=== PATIENT | female | born 1945 | race Two or more races ===

== ENCOUNTER 2017-04-14 06:19 | Day surgery (SDC) | payer MEDICARE, OTHER, SELFPAY ==
--- NOTE | 2017-04-10 15:22 | Pre-Procedure Note/Attestation ---
Pre-Procedure Note/Attestation Complete Prior to Procedure Planned Procedure: right Procedure Narrative: 1. CATARACT EXTRACTION WITH PHACO AND PC IOL IMPLANTATION, RIGHT EYE. Indications for Procedure Pre-Operative Diagnosis: 1. CATARACT ,RIGHT EYE. Attestation I attest that I discussed the nature of the procedure; its benefits; risks and complications; and alternatives (and the risks and benefits of such alternatives ), prior to the procedure, with the patient (or the patient's legal outbound telemarketing representative). I attest that, if there was a reasonable possibility of needing a blood transfusion, the patient (or the patient's legal outbound telemarketing representative) was given the [facility] standardized written summary, pursuant to the [place] Blood Safety Act ([place] Health and Safety Code # 1645, as amended). I attest that I re-evaluated the patient just prior to the surgery and that there has been no change in the patient's H&P, except as documented below: FARRAH ARCE Apr 10, 2017 15:22
[~2017-04-14] VITALS: Ht 154.9 cm; Wt 58.1 kg
[2017-04-14] VITALS (10 sets, daily range): BP systolic 116–169; BP diastolic 63–79
[~2017-04-14 06:19] MED LIST: acetaZOLAMIDE 125mg tab ORAL ONE
[2017-04-14] MEDS ORDERED: Phenylephrine 10% Opth Soln 5ml ONE (07:25)
[2017-04-14] MEDS ORDERED: Gatifloxacin Opth Solution 0.5% ONE (07:25)
[2017-04-14] MEDS ORDERED: Tropicamide 1% Opth Soln ONE (07:25)
[2017-04-14] MEDS ORDERED: Diclofenac Sod 0.1% Op Soln ONE (07:25)
[2017-04-14] MEDS ORDERED: Akten 3.5% 1ml Btl ONE (07:25)
[2017-04-14] MEDS ORDERED: BSS 500ml btl ONE (07:26)
[2017-04-14] MEDS ORDERED: Lidocaine 1% MPF 10mg/ml 5ml ONE (07:26)
[2017-04-14] MEDS ORDERED: Carbachol 0.01% Op Soln 1.5ml vial ONE (07:26)
[2017-04-14] MEDS ORDERED: Tetracaine 0.5% Opth Soln ONE (07:26)
[2017-04-14] MEDS ORDERED: Dexamethasone 4mg/ml vial ONE (07:26)
[2017-04-14] MEDS ORDERED: Povidone-Iodine 5% opth solution ONE (07:27)
[2017-04-14] MEDS ORDERED: BSS 15ml BTL ONE (07:27)
[2017-04-14] MEDS ORDERED: Sodium Hyaluronate 10 mg/ml 0.85ml ONE (07:27)
[2017-04-14] MEDS: Gatifloxacin Opth Solution 0.5% RIGHT EYE SCH ×3 (07:32→07:45)
[2017-04-14] MEDS: Diclofenac Sod 0.1% Op Soln RIGHT EYE SCH ×3 (07:32→07:44)
[2017-04-14] MEDS: Tropicamide 1% Opth Soln RIGHT EYE SCH ×3 (07:32→07:44)
[2017-04-14] MEDS: Phenylephrine 10% Opth Soln 5ml RIGHT EYE SCH ×3 (07:32→07:44)
[2017-04-14] MEDS: Akten 3.5% 1ml Btl RIGHT EYE SCH ×3 (07:32→07:44)
[2017-04-14] MEDS ORDERED: Potassium Chloride 20 MEQ in LR 1000ml 1,000 ML IV SCH (08:00)
[2017-04-14] MEDS ORDERED: ECOTRIN81 MG PO (08:01)
[2017-04-14] MEDS ORDERED: LEVOTHYROXINE25 MCG ORAL (08:01)
[2017-04-14] MEDS ORDERED: MECLIZINE HCL25 M1 ORAL (08:01)
[2017-04-14] MEDS ORDERED: Propofol 10mg/ml 20ml IV ONE ×2 (08:30)
[2017-04-14] MEDS ORDERED: Sterile Water Irrig 1000ml IRRIG ONE (08:30)
[2017-04-14] MEDS ORDERED: Midazolam 2mg/2ml Inj ONE (08:30)
[2017-04-14] MEDS ORDERED: NS Irrig 1000ml ONE (08:30)
[2017-04-14] MEDS ORDERED: LR 1000ml ONE (08:30)
[2017-04-14] MEDS ORDERED: fentaNYL 100 mcg/2 mL IV ONE (08:30)
[2017-04-14] MEDS ORDERED: LR 1000ml 1,000 ML IVLG SCH (08:49)
--- NOTE | 2017-04-14 08:49 | Anethesia Preoperative Eval ---
Anesthesia Pre-op PMH/ROS General Date of Evaluation: Apr 14, 2017 Time of Evaluation: 08:25 Anesthesiologist: Alessio ASA Score: ASA 2 Mallampati Score Class I : Soft palate, uvula, fauces, pillars visible Class II: Soft palate, uvula, fauces visible Class III: Soft palate, base of uvula visible Class IV: Only hard plate visible Mallampati Classification: Class II Surgeon: Jose Diagnosis: R eye cataract Surgical Procedure: R eye cataract extraction Anesthesia History: none Social History: smoking - h/o Family History: no anesthesia problems Allergies: Coded Allergies: CODEINE (Verified Allergy, Severe, dizziness, 04/14/17) Medications: see eMAR Past Medical History Cardiovascular: Denies: CAD, HTN, [place], arrhythmia, other, valve dz Pulmonary: Denies: COPD, K[place], asthma, other Gastrointestinal/Genitourinary: Reports: GERD - mild, Denies: CRI, ESRD, other Neurologic/Psychiatric: Denies: CVA, TIA, dementia, depression/anxiety, other Endocrine: Reports: hypothyroidism, Denies: DM, other, steroids HEENT: Reports: cataract (L), cataract (R), Denies: [place] (L), [place] (R), glaucoma, other Hematology/Immune: Denies: DVT, anemia, bleeding disorder, other Musculoskeletal/Integumentary: Reports: OA, Denies: DDD, DJD, RA, edema, other PMH Narrative: as above PSxH Narrative: none Anesthesia Pre-op Phys. Exam Physician Exam Last Vital Signs Date Time Temp Pulse Resp B/P Pulse Ox O2 Delivery O2 Flow Rate FiO2 04/14/17 07:42 97.8 72 18 133/63 98 Room Air Constitutional: NAD Neurologic: CN 2-12 intact Cardiovascular: RRR, no M/R/G Respiratory: CTA Gastrointestinal: S/NT/ND Airway Exam Mallampati Score: Class II MO: limited Neck: stiff ROM: limited Teeth: missing Dentures: no lower, no upper Anesthesia Pre-op A/P Labs see chart Studies Pre-op Studies: EKG - NSR Risk Assessment & Plan Assessment: ASA 2 Plan: MAC Status Change Before Surgery: No Pre-Antibiotics Drug: none DINA ORNELAS M.D. Apr 14, 2017 08:49
[2017-04-14] MEDS ORDERED: fentaNYL 100 mcg/2 mL IV PRN (09:00)
[2017-04-14] MEDS ORDERED: DiphenhydrAMINE 50mg/ml Inj IVP PRN (09:00)
--- NOTE | 2017-04-14 09:20 | Brief Operative Note ---
Immediate Post Operative Note Operative Note Chief Complaint: Blurry vision, right eye. Difficulty driving and reading, right eye Pre-op Diagnosis: 1. CATARACT ,RIGHT EYE. Procedure: cataract extraction with phaco and PC IOL implantation, right eye Post-op Diagnosis: same as pre-op Surgeon: Farrah Garcia MD. Neonatal Social Worker: None Additional Surgeons: None Anesthesiologist: Dr. Mccallum Anesthesia: MAC Specimen: none Complications: none Condition: stable Estimated Blood Loss: none Drains: none Implant(s) used?: Yes - Multifocal PC IOL implanted in the right eye without complication FARRAH GARCIA Apr 14, 2017 09:20
--- NOTE | 2017-04-14 09:22 | Discharge Summary ---
Discharge Summary Discharge Summary Discharge Summary DATE OF ADMISSION:)04/14/2017 DATE OF DISCHARGE:04/14/2017 REASON FOR HOSPITALIZATION: Cataract, right eye SURGERY PERFORMED: Cataract extraction with phaco and PC IOL implantation,roght eye CONDITION IN THE HOSPITAL:The patient tolerated the surgery without complications. DISCHARGE CONDITION: The patient was stable at discharge. DISCHARGE MEDICATIONS: 1. Vigamox eye drops one drop q.i.d, 2. Prednisolone one drop q.i.d, 3. Acular one drop qid, right eye POSTOPERATIVE ORDERS: The patient has to rest at home. No bending, No lifting, No watching Television tonight. POSTOPERATIVE FOLLOW UP: The patient will be followed in my office tomorrow morning at 7 o'clock. FARRAH ARCE Apr 14, 2017 09:22
--- NOTE | 2017-04-14 09:59 | Immediate Post-Op Evaluation ---
Immediate Post-Op Evalulation Immediate Post-Op Evalulation Procedure: R eye cataract extraction with IOL Date of Evaluation: Apr 14, 2017 Time of Evaluation: 09:18 IV Fluids: 200 Blood Products: none Estimated Blood Loss: none Urinary Output: none Blood Pressure Systolic: 134 Blood Pressure Diastolic: 58 Pulse Rate: 72 Respiratory Rate: 20 O2 Sat by Pulse Oximetry: 99 Temperature (Fahrenheit): 97.7 Pain Score (1-10): 2 Nausea: No Vomiting: No Complications none Patient Status: awake, patent, none Hydration Status: adequate DINA ORNELAS M.D. Apr 14, 2017 09:59
--- NOTE | 2017-04-14 12:44 | 48 Hour Post Anesthesia Eval ---
Post Anesthesia Evaluation Procedure: R eye cataract extraction with IOL Date of Evaluation: Apr 14, 2017 Time of Evaluation: 12:43 Blood Pressure Systolic: 116 0: 72 Pulse Rate: 68 Respiratory Rate: 20 Temperature (Fahrenheit): 97.5 O2 Sat by Pulse Oximetry: 98 Airway: patent Nausea: No Vomiting: No Pain Intensity: 2 Hydration Status: adequate Cardiopulmonary Status: stable Mental Status/LOC: patient returned to baseline Follow-up Care/Observations: n/a Post-Anesthesia Complications: none Follow-up care needed: ready to discharge DINA ORNELAS M.D. Apr 14, 2017 12:44
--- NOTE | 2017-04-14 23:45 | Operative Note - Dictated ---
DATE OF OPERATION: 04/14/2017 FACILITY: [facility]. SURGEON: Jace Garcia M.D. DEFECT REPAIRER GLASSWARE: None. ANESTHESIOLOGIST: Sandeep Mccallum M.D. ANESTHESIA: Monitored anesthesia care (MAC). PREOPERATIVE DIAGNOSIS: Cataract right eye. POSTOPERATIVE DIAGNOSIS: Cataract, right eye. SURGERY PERFORMED: Cataract extraction with phacoemulsification and posterior chamber intraocular lens implantation in the right eye. INDICATION FOR SURGERY: The patient is a 71-year-old lady with history of anxiety, diabetes, history of tobacco abuse, hyperlipidemia, hypothyroidism, osteoarthritis, osteoporosis, and primary insomnia. She is taking medications including vitamin C, aspirin, vitamin B12, levothyroxine 25 mcg, lorazepam, meclizine, Vytorin, and Actos. She is complaining of blurred vision in the right eye. Examination of her right eye showed the cornea is clear. Anterior chamber is clean and quiet. Pupillary reflex is normal. There is no RAPD. Dilated eye exam showed optic nerve, macula, anterior chamber, and retina are within normal limits. To improve her vision in the right eye, the cataract has to be removed and posterior chamber intraocular lens has to be implanted. INFORMED CONSENT: The nature of the surgery, risks, benefits, alternatives, and potential complications were explained all in detail to the patient. The potential complications including, but not limited to bleeding, infection, posterior capsular rupture, lens subluxation, flat anterior chamber, iris prolapse, uveitis, corneal edema, macular edema, endophthalmitis, retinal detachment, loss of vision, and even loss of the eye were all explained in detail to the patient in her language Farsi. The patient voiced understanding and accepted all the complications. The alternatives including accommodating lens, multifocal lens, toric lens, and conventional cataract surgery with limbal relaxing incision (LRI) for treatment of astigmatism were all explained in detail to the patient. She voiced understanding. The patient elected to have cataract surgery with insertion multifocal IOL. Then, she signed the consent form, which is in the chart. DESCRIPTION OF SURGERY AND FINDINGS: Following that, the patient was taken to the operation room in stable condition. Lidocaine gel, Akten 3.5% was applied to the conjunctiva of the right eye. IV sedation was given by the anesthesiologist, Dr. Mccallum. After adequate anesthesia and sedation had been achieved, the right eye was prepped and draped in a sterile fashion for intraocular surgery. Following that, a speculum was placed in the right eye. Following that, using a Super Sharp knife, a clear corneal side port was created. Following that, 1% lidocaine without preservative (MPF) was injected into the anterior chamber. The viscoelastic agent Healon was injected into the anterior chamber. Following that, with a 2.8 mm keratome, a temporal clear corneal keratotomy was performed. Viscoelastic agent Healon was injected into the anterior chamber again. Following that, [place] blue was injected under the viscoelastic agent to stain the anterior capsule . Following that, clear viscoelastic agent was injected into the anterior chamber. Under the viscoelastic agent, an anterior capsulotomy was performed in the fashion of capsulorrhexis beautifully. Following that, all viscoelastic agent was removed from the anterior chamber, and hydrodissection and hydrodelineation were performed with balanced salt solution and the nucleus was freed in toto. Following that, viscoelastic agent was injected into the anterior chamber to protect the endothelium of the cornea. Following that, using phacoemulsification machine in the fashion of horizontal chop, the nucleus was removed in toto. Following that, using irrigation aspiration unit, the cortical material was removed from the capsular bag, and the capsular bag was polished. Following that, the capsular bag was filled with viscoelastic agent Healon. Following that, a +19 diopter ZLB00 foldable PC IOL with serial number [id number] was injected into the capsular bag. Using a Sinskey hook, the lens was manipulated and put in the proper position. Following that, the viscoelastic agent was removed from the anterior and posterior part of the lens. The anterior chamber was filled with balanced salt solution. Following that, the wound was hydrated with balanced salt solution and the wound was checked for leakage. There was no leakage. Following that, Vigamox eye drops were applied conjunctiva of the right eye. The patient tolerated the surgery without complications. At the end of the surgery, the eye was patched with a clear sterile fenestrated shield. Following that, the patient was transferred to the recovery room. In the recovery room, 125 mg Diamox was given by my office staff. Postoperative orders and directions were given to the patient. The patient will be discharged home upon stabilization. The patient will be followed in my office tomorrow morning at 7 o'clock. Jace Garcia M.D. DR: ALISHA JOB#: [id number] CC:
[2017-04-15] MEDS ORDERED: LR 1000ml 1,000 ML IV SCH (08:00)
== END 2017-04-14 10:55 | disposition home or self-care (01) ==
LOC: SUR 06:19
DX: H26.9 Unspecified cataract (principal); I25.10 Atherosclerotic heart disease of native coronary artery without angina pectoris; F41.9 Anxiety disorder, unspecified; E78.5 Hyperlipidemia, unspecified; E03.9 Hypothyroidism, unspecified; M19.90 Unspecified osteoarthritis, unspecified site; M81.0 Age-related osteoporosis without current pathological fracture; F51.01 Primary insomnia; E11.9 Type 2 diabetes mellitus without complications; Z79.84 Long term (current) use of oral hypoglycemic drugs; E00.9 Congenital iodine-deficiency syndrome, unspecified; I34.0 Nonrheumatic mitral (valve) insufficiency; E53.8 Deficiency of other specified B group vitamins; E55.9 Vitamin D deficiency, unspecified; Z87.891 Personal history of nicotine dependence; Z87.01 Personal history of pneumonia (recurrent); Z88.5 Allergy status to narcotic agent
CPT/HCPCS: 94003; 94150; J2250

== ENCOUNTER 2017-04-21 06:43 | Day surgery (SDC) | payer MEDICARE, OTHER, SELFPAY ==
--- NOTE | 2017-04-17 15:59 | Pre-Procedure Note/Attestation ---
Pre-Procedure Note/Attestation Complete Prior to Procedure Planned Procedure: left Procedure Narrative: 1. CATARACT EXTRACTION WITH PHACO AND PC IOL IMPLANTATION, LEFT EYE. Indications for Procedure Pre-Operative Diagnosis: 1. CATARACT ,LEFT EYE. Attestation I attest that I discussed the nature of the procedure; its benefits; risks and complications; and alternatives (and the risks and benefits of such alternatives ), prior to the procedure, with the patient (or the patient's legal patient registration representative). I attest that, if there was a reasonable possibility of needing a blood transfusion, the patient (or the patient's legal patient registration representative) was given the [facility] standardized written summary, pursuant to the [place] Blood Safety Act ([place] Health and Safety Code # 1645, as amended). I attest that I re-evaluated the patient just prior to the surgery and that there has been no change in the patient's H&P, except as documented below: FARRAH ARCE Apr 17, 2017 15:59
[2017-04-21] VITALS (10 sets, daily range): BP systolic 120–154; BP diastolic 65–82
[~2017-04-21] VITALS: Ht 157.5 cm; Wt 62.6 kg
[2017-04-21] MEDS: Gatifloxacin Opth Solution 0.5% LEFT EYE SCH ×3 (06:00→06:10)
[~2017-04-21 06:43] MED LIST changes: +ECOTRIN81 MG PO; +LEVOTHYROXINE25 MCG ORAL; +MECLIZINE HCL25 M1 ORAL
[2017-04-21] MEDS ORDERED: LR 1000ml 1,000 ML IV SCH (07:00)
[2017-04-21] MEDS ORDERED: Povidone-Iodine 5% opth solution ONE (07:03)
[2017-04-21] MEDS ORDERED: BSS 15ml BTL ONE (07:03)
[2017-04-21] MEDS ORDERED: BSS 500ml btl ONE (07:03)
[2017-04-21] MEDS ORDERED: Sodium Hyaluronate 10 mg/ml 0.85ml ONE (07:03)
[2017-04-21] MEDS ORDERED: Gatifloxacin Opth Solution 0.5% ONE (07:14)
[2017-04-21] MEDS ORDERED: Diclofenac Sod 0.1% Op Soln ONE (07:14)
[2017-04-21] MEDS ORDERED: Phenylephrine 10% Opth Soln 5ml ONE (07:14)
[2017-04-21] MEDS ORDERED: Akten 3.5% 1ml Btl ONE (07:14)
[2017-04-21] MEDS ORDERED: Tropicamide 1% Opth Soln ONE (07:15)
[2017-04-21] MEDS: Phenylephrine 10% Opth Soln 5ml LEFT EYE SCH ×3 (07:25→07:42)
[2017-04-21] MEDS: Diclofenac Sod 0.1% Op Soln LEFT EYE SCH ×3 (07:25→07:42)
[2017-04-21] MEDS: Tropicamide 1% Opth Soln LEFT EYE SCH ×3 (07:25→07:42)
[2017-04-21] MEDS: Akten 3.5% 1ml Btl LEFT EYE SCH ×3 (07:25→07:41)
[2017-04-21] MEDS ORDERED: VYTORIN 10-401 EACH ORAL (07:50)
[2017-04-21] MEDS ORDERED: OYSCO-500500 M1 PO (07:50)
--- NOTE | 2017-04-21 08:38 | Anethesia Preoperative Eval ---
Anesthesia Pre-op PMH/ROS General Date of Evaluation: Apr 21, 2017 Time of Evaluation: 08:10 Anesthesiologist: Alessio ASA Score: ASA 2 Mallampati Score Class I : Soft palate, uvula, fauces, pillars visible Class II: Soft palate, uvula, fauces visible Class III: Soft palate, base of uvula visible Class IV: Only hard plate visible Mallampati Classification: Class II Surgeon: Jose Diagnosis: L eye cataract Surgical Procedure: L eye cataract extraction with IOL Anesthesia History: none Family History: no anesthesia problems Allergies: Coded Allergies: CODEINE (Verified Allergy, Severe, dizziness, 04/14/17) Medications: see eMAR Past Medical History Cardiovascular: Reports: HTN, Denies: CAD, [place], arrhythmia, other, valve dz Pulmonary: Denies: COPD, KIRSTIE, asthma, other Gastrointestinal/Genitourinary: Reports: GERD - mild, Denies: CRI, ESRD, other Neurologic/Psychiatric: Denies: CVA, TIA, dementia, depression/anxiety, other Endocrine: Denies: DM, hypothyroidism, other, steroids HEENT: Reports: cataract (L), cataract (R), Denies: [place] (L), [place] (R), glaucoma, other Hematology/Immune: Denies: DVT, anemia, bleeding disorder, other Musculoskeletal/Integumentary: Reports: OA, Denies: DDD, DJD, RA, edema, other PMH Narrative: as above PSxH Narrative: see chart Anesthesia Pre-op Phys. Exam Physician Exam Last Vital Signs Date Time Temp Pulse Resp B/P Pulse Ox O2 Delivery O2 Flow Rate FiO2 04/21/17 07:32 97.4 58 18 136/74 97 Room Air Constitutional: NAD Neurologic: CN 2-12 intact Cardiovascular: RRR, no M/R/G Respiratory: CTA Gastrointestinal: S/NT/ND Airway Exam Mallampati Score: Class II MO: limited Neck: stiff ROM: limited Teeth: missing Dentures: no lower, no upper Anesthesia Pre-op A/P Labs see chart Studies Pre-op Studies: EKG - NSR Risk Assessment & Plan Assessment: ASA2 Plan: MAC Status Change Before Surgery: No Pre-Antibiotics Drug: none DINA ORNELAS M.D. Apr 21, 2017 08:38
[2017-04-21] MEDS ORDERED: LR 1000ml 1,000 ML IVLG SCH (08:39)
[2017-04-21] MEDS ORDERED: DiphenhydrAMINE 50mg/ml Inj IVP PRN (08:45)
[2017-04-21] MEDS ORDERED: fentaNYL 100 mcg/2 mL IV PRN (08:45)
[2017-04-21] MEDS ORDERED: Lidocaine 1% MPF 10mg/ml 5ml ONE (09:06)
[2017-04-21] MEDS ORDERED: EPINEPHrine 1mg/1ml Amp ONE (09:06)
[2017-04-21] MEDS ORDERED: Dexamethasone 4mg/ml vial ONE (09:06)
--- NOTE | 2017-04-21 09:07 | Brief Operative Note ---
Immediate Post Operative Note Operative Note Chief Complaint: Blurry vision,left eye. Difficulth driving and reading,left eye Pre-op Diagnosis: 1. CATARACT ,LEFT EYE. Procedure: Cataract extraction with phaco and PC IOL implantation, left eye Post-op Diagnosis: same as pre-op Surgeon: Farrah Garcia MD. Wastewater Treatment Plant Operator: None Additional Surgeons: None Anesthesiologist: Dr. Garcia Anesthesia: MAC Specimen: none Complications: none Condition: stable Estimated Blood Loss: none Drains: none Implant(s) used?: Yes - Multifocal PC IOL implanted in the left eye without complication FARRAH GARCIA Apr 21, 2017 09:07
--- NOTE | 2017-04-21 09:09 | Discharge Summary ---
Discharge Summary Discharge Summary Discharge Summary DATE OF ADMISSION: 04/21/2017 DATE OF DISCHARGE:04/21/2017 REASON FOR HOSPITALIZATION: Cataract, left eye SURGERY PERFORMED: Cataract extraction with phaco and PC IOl implantation, left eye CONDITION IN THE HOSPITAL:The patient tolerated the surgery without complications. DISCHARGE CONDITION: The patient was stable at discharge. DISCHARGE MEDICATIONS: 1. Vigamox eye drops one drop q.i.d, left eye 2. Prednisolone one drop q.i.d,left eye 3. Acular one drop qid, left eye POSTOPERATIVE ORDERS: The patient has to rest at home. No bending, No lifting, No watching Television tonight. POSTOPERATIVE FOLLOW UP: The patient will be followed in my office tomorrow morning at 7 o'clock. FARRAH ARCE Apr 21, 2017 09:09
--- NOTE | 2017-04-21 09:43 | Immediate Post-Op Evaluation ---
Immediate Post-Op Evalulation Immediate Post-Op Evalulation Procedure: L eye Cataract extraction with IOL Date of Evaluation: Apr 21, 2017 Time of Evaluation: 09:02 IV Fluids: 200 Blood Products: none Estimated Blood Loss: none Urinary Output: none Blood Pressure Systolic: 134 Blood Pressure Diastolic: 65 Pulse Rate: 72 Respiratory Rate: 20 O2 Sat by Pulse Oximetry: 98 Temperature (Fahrenheit): 97.6 Pain Score (1-10): 2 Nausea: No Vomiting: No Complications none Patient Status: awake, patent, none Hydration Status: adequate DINA ORNELAS M.D. Apr 21, 2017 09:43
--- NOTE | 2017-04-21 11:08 | 48 Hour Post Anesthesia Eval ---
Post Anesthesia Evaluation Procedure: L eye Cataract extraction with IOL Date of Evaluation: Apr 21, 2017 Time of Evaluation: 11:07 Blood Pressure Systolic: 148 0: 65 Pulse Rate: 62 Respiratory Rate: 18 Temperature (Fahrenheit): 97.8 O2 Sat by Pulse Oximetry: 99 Airway: patent Nausea: No Vomiting: No Pain Intensity: 2 Hydration Status: adequate Cardiopulmonary Status: stable Follow-up Care/Observations: n/a Post-Anesthesia Complications: none Follow-up care needed: ready to discharge DINA ORNELAS M.D. Apr 21, 2017 11:08
--- NOTE | 2017-04-22 00:30 | Operative Note - Dictated ---
DATE OF OPERATION: 04/21/2017 FACILITY: [facility]. SURGEON: Jace Garcia M.D. FLOAT BUILDER: None. ANESTHESIOLOGIST: Sandeep Mccallum M.D. ANESTHESIA: Monitored anesthesia care (MAC). PREOPERATIVE DIAGNOSIS: Cataract, left eye. POSTOPERATIVE DIAGNOSIS: Cataract, left eye. SURGERY PERFORMED: Cataract extraction with phacoemulsification of posterior chamber intraocular lens implantation of the left eye. INDICATIONS FOR SURGERY: The patient is a 71-year-old lady with history of anxiety, diabetes mellitus, history of tobacco abuse, hyperlipidemia, hypothyroidism, osteoarthritis, osteoporosis, and primary insomnia. She is taking medications including vitamin C, aspirin, vitamin B12, levothyroxine 25 mcg, lorazepam, meclizine, Vytorin, and Actos. She is complaining of blurry vision in the left eye. She has had cataract surgery in the right eye last week and she is very happy with the result. On examination of her left eye shows the cornea is clear. Anterior chamber is clean and quiet. Pupillary reflex is normal. There is no RAPD. Dilated eye examination showed optic nerve, macula, anterior chamber, and retina, all within normal limits. To improve her vision in the left eye, the cataract has to be removed and posterior chamber intraocular lens has to be implanted. INFORMED CONSENT: The nature of the surgery, risks, benefits, alternatives, and potential complications were explained all in detail to the patient. The potential complications including, but not limited to bleeding, infection, posterior capsular rupture, lens subluxation, flat anterior chamber, iris prolapse, uveitis, corneal edema, macular edema, endophthalmitis, retinal detachment, loss of vision, and even loss of the eye were all explained in detail to the patient in her language Farsi. The patient voiced understanding and accepted all the complications. The alternatives including accommodating lens, multifocal lens, toric lens, and conventional cataract surgery with limbal relaxing incision (LRI) for treatment of astigmatism were all explained in detail to the patient. The patient voiced understanding. The patient elected to have cataract surgery with insertion of multifocal intraocular lens. Then, she signed the consent form, which is in the chart. DESCRIPTION OF SURGERY AND FINDINGS: Following that, the patient was taken to the operation room in stable condition. Lidocaine gel, Akten 3.5% was applied to the conjunctiva of the left eye. IV sedation was given by the anesthesiologist, Dr. Mccallum. After adequate anesthesia and sedation had been achieved, the left eye was prepped and draped in a sterile fashion for intraocular surgery. Following that, a speculum was placed in the left eye. Following that, using a Super Sharp knife, a clear corneal side port was created. Following that, 1% lidocaine without preservative (MPF) was injected into the anterior chamber. The viscoelastic agent, Healon was injected into the anterior chamber. Following that, with a 2.8 mm keratome, a temporal clear corneal keratotomy was performed. Viscoelastic agent, Healon was injected into the anterior chamber again. Following that, Vision Blue was injected under the viscoelastic agent to stain the anterior capsule of the lens. Following that, clear viscoelastic agent, Healon was injected into the anterior chamber again. Under the viscoelastic agent, an anterior capsulotomy was performed in the fashion of capsulorrhexis beautifully. Following that, all viscoelastic agent was removed from the anterior chamber and hydrodissection and hydrodelineation was performed with balanced salt solution and the nucleus was freed in toto. Following that, viscoelastic agent was injected into the anterior chamber to protect the endothelium of the cornea. Following that, using phacoemulsification machine in the fashion of horizontal chop, the nucleus was removed in toto. Following that, using irrigation aspiration unit, the cortical material was removed from the capsular bag and the capsular bag was polished. Following that, the capsular bag was filled with viscoelastic agent, Healon. Following that, a +18 diopter [id number] foldable PC IOL with serial number [id number] was injected into the capsular bag. Following that, using a Sinskey hook, the lens was manipulated and put in the proper position. Following that, the viscoelastic agent was removed from the anterior and posterior part of the lens. The anterior chamber was filled with balanced salt solution. Following that, the wound was hydrated with balanced salt solution and the wound was checked for leakage. There was no leakage. Following that, Vigamox eye drops were applied to the conjunctiva of the left eye. The patient tolerated the surgery without complications. At the end of the surgery, the eye was patched with a clear sterile fenestrated shield. Following that, the patient was transferred to the recovery room. In the recovery room, 125 mg Diamox was given by mouth. Postoperative orders and directions were given to the patient. The patient will be discharged home upon stabilization. The patient will be followed in my office tomorrow morning at 7 o'clock. Jace Garcia M.D. DR: KURT JOB#: [id number] CC:
--- NOTE | 2017-04-22 10:15 | Pre-op HX & Phy Repo 2 SIG ---
DATE OF ADMISSION: 04/21/2017 REASON FOR EVALUATION: I was asked by Dr. Jace Garcia to see this 71-year-old female, who went for elective surgery on the left eye. The patient has a cataract left eye. Please see full History and Physical by Dr. Jace Garcia. The patient was evaluated. Chart was reviewed. PAST MEDICAL HISTORY/REVIEW OF SYSTEMS: Remarkable for hypothyroidism and degenerative joint disease. No history of chest pain, palpitation or heart attack. Denies history of respiratory problem. No hypertension. No diabetes mellitus. Denied any history of liver or kidney problems. No ulcer disease or bleeding. No anemia. PAST SURGICAL HISTORY: Breast biopsy, benign right eye cataract a week ago . CURRENT MEDICATIONS: Levothyroxine, calcium and vitamin D supplements, cholesterol medications, and Ativan p.r.n. ALLERGIES: To codeine. SOCIAL HISTORY: The patient smoked in the past for approximately 15 years and stopped more than 30 years ago. Denies alcohol or street drug use. FAMILY HISTORY: Both parents father and mother are alive. Mother has hypertension. PHYSICAL EXAMINATION: GENERAL: The patient is alert, 71-year-old female, in no acute distress. VITAL SIGNS: Blood pressure 136/79, temperature 97.1, pulse 58 per minute regular, and respiratory rate is 18. SKIN: Clear, dry, and warm. No rashes or ulceration. LYMPHATICS: Lymph nodes are not enlarged. HEENT: Head, normocephalic. Eyes, full description per Dr. Jace Garcia. Mouth, clear and moist. No dentures. NECK: Supple. No jugular vein distention. Carotids artery +2. Trachea midline. CHEST: No deformity or asymmetry. LUNGS: Clear. No rales or rhonchi. HEART: Sinus rhythm. No murmur. No S3 or S4. No ectopy. ABDOMEN: Soft. No palpable mass. No rebound. Liver and spleen are not enlarged. EXTREMITIES: Degenerative joint disease of . No edema or varicose veins. No calf tenderness. GENITOURINARY: No CVA tenderness. No dysuria. NEUROLOGIC: No tremor. No nystagmus. LABORATORY AND DIAGNOSTIC DATA: Electrocardiogram normal sinus rhythm 64 per minute, early repolarization. The patient did not eat or drink from 10 p.m. yesterday. Lab work, see copy, normal limit from last visit. IMPRESSION: 1. Cataract in the left eye. 2. Hypothyroidism. 3. Degenerative joint disease. 4. Hyperlipidemia. PLAN: Cataract extraction, right eye with intraocular lens implant per Dr. Jace Garcia. CONCLUSION: The patient is a 71-year-old female. The patient is in no distress. The patient is NPO. Vital signs are stable. The patient's condition optimized for surgery. Thank you very much, Dr. Garcia, for privilege to participate presurgical care of this interesting patient. Destinee Black M.D. DR: DASHA JOB#: [id number] CC:
== END 2017-04-21 10:35 | disposition home or self-care (01) ==
LOC: SUR 06:43
DX: H26.9 Unspecified cataract (principal); I10 Essential (primary) hypertension; E03.9 Hypothyroidism, unspecified; M19.90 Unspecified osteoarthritis, unspecified site; E78.5 Hyperlipidemia, unspecified; E11.9 Type 2 diabetes mellitus without complications; Z79.84 Long term (current) use of oral hypoglycemic drugs; K21.9 Gastro-esophageal reflux disease without esophagitis; F41.9 Anxiety disorder, unspecified; F51.01 Primary insomnia; M81.0 Age-related osteoporosis without current pathological fracture; Z87.891 Personal history of nicotine dependence
CPT/HCPCS: 66984; J0171; J1100; V2632; 94003; 94150